=== PATIENT | male | born 1975 ===

== ENCOUNTER 2017-01-07 12:07 | Outpatient (CLI) | payer OTHER | END 2017-01-07 12:08 | disposition home or self-care (01) | DX: S46.112A Strain of muscle, fascia and tendon of long head of biceps, left arm, initial encounter (principal); M75.92 Shoulder lesion, unspecified, left shoulder ==

== ENCOUNTER 2017-02-04 13:23 | Outpatient (CLI) | payer OTHER ==
[2017-02-04] MEDS ORDERED: GADOPENTETATE DIMEGLUMINE 5 ML VIAL IVP ONE ×2 (14:22)
[2017-02-04] MEDS ORDERED: LIDOCAINE 1% 50 ML MDV SUBQ ONE ×2 (14:22)
[2017-02-04] MEDS ORDERED: BUFFERED LIDOCAINE 10 ML SYRINGE IU ONE (14:22)
[2017-02-04] MEDS ORDERED: IOTHALAMATE MEGLUMINE 50 ML VIAL IVP ONE ×2 (14:22)
== END 2017-02-04 13:24 | disposition home or self-care (01) ==
DX: S43.432A Superior glenoid labrum lesion of left shoulder, initial encounter (principal); M75.102 Unspecified rotator cuff tear or rupture of left shoulder, not specified as traumatic; M94.212 Chondromalacia, left shoulder
CPT/HCPCS: 23350; 73222; 77002; Q9961

== ENCOUNTER 2017-04-25 13:14 | Outpatient (CLI) | payer OTHER ==
[2017-04-25] MEDS ORDERED: BUFFERED LIDOCAINE 10 ML SYRINGE IU ONE ×2 (14:40)
[2017-04-25] MEDS ORDERED: IOTHALAMATE MEGLUMINE 50 ML VIAL IVP ONE ×2 (14:40)
[2017-04-25] MEDS ORDERED: GADOPENTETATE DIMEGLUMINE 5 ML VIAL IVP ONE ×2 (14:40)
--- NOTE | 2017-04-25 16:30 | XRAY Report ---
FLUOROSCOPICALLY GUIDED RIGHT SHOULDER INJECTION: 04/25/2017 CLINICAL INDICATION: Right shoulder pain, MR arthrogram. FINDINGS: Following obtaining informed consent, the patient's right shoulder was prepped and draped in the usual sterile fashion. The skin and soft tissues were anesthetized with lidocaine. A spinal ne edle was inserted into the right glenohumeral joint, and following confirmation of needle positioning , a combination of Iodinated contrast, dilute gadolinium, and lidocaine was injected intraarticularly . The patient tolerated the procedure well. No immediate complications. Spot image reveals no evidenc e of contrast extravasation. IMPRESSION: SUCCESSFUL RIGHT SHOULDER INJECTION FOR MR ARTHROGRAM. FLUOROSCOPY TIME: 36 SECONDS; 1 SPOT IMAGE OBTAINED. JOB #: [id number] EXT JOB #:[id number]
--- NOTE | 2017-04-25 18:11 | MRI Report ---
EXAM: RIGHT SHOULDER MRI ARTHROGRAM WITH CONTRAST EXAM DATE: 04/25/2017 03:00 PM. CLINICAL HISTORY: Pain in right shoulder. COMPARISON: None. TECHNIQUE: Multiplanar, multisequence T1-weighted and fluid-sensitive sequences of the shoulder after an arthrographic injection of dilute gadolinium, dictated under a separate exam. Other: None. FINDINGS: Acromioclavicular Region: The acromion is type II. The acromioclavicular joint is unremarkable. The c oracoacromial and coracoclavicular ligaments are intact. Trace amount of fluid in the bursa. No contr ast. Glenohumeral Region: No subluxation. No loose bodies. The articular cartilage is unremarkable. The gl enohumeral ligaments and joint capsule are unremarkable. Bone Marrow: No fracture, marrow edema or bone lesions. Labrum: Full-thickness tear superior labrum outline without contrast material. Please see series 601 image 10, series 501 image 17. Biceps Tendon: The long head of the biceps tendon and biceps josephine are intact. Musculature/Rotator Cuff: Some increased T2 signal without partial or full-thickness fluid-filled gap seen in the anterior distal supraspinatus fibers. Please see series 901 image 17, series 801 image 1 7. Subscapularis also shows mild thickening. Infraspinatus and teres minor are more normal. No proxim al muscular edema or fatty atrophy is seen. Other: The subcutaneous tissues are unremarkable. IMPRESSION: 1. Type II unipartite undersurface osseous acromion shape. AC joint is unremarkable. Trace amount of fluid in the bursa. No contrast. 2. Full-thickness labral tears appear labrum outline the contrast material. Type II SLAP lesion. 3. Tendinitis seen in the distal supraspinatus portion of the rotator cuff, infraspinatus and teres m inor have a normal appearance. Subscapularis shows mild tendinopathy as well. 4. No other worrisome imaging features. [facility] MUSCULOSKELET[facility] RADIOLOGY SECTION Referring Provider Line: [phone] SITE ID: [id number]
== END 2017-04-25 13:15 | disposition home or self-care (01) ==
LOC: DI 13:14
PROVIDERS: ATTEND General Practice
DX: S43.431A Superior glenoid labrum lesion of right shoulder, initial encounter (principal); M75.31 Calcific tendinitis of right shoulder
CPT/HCPCS: 23350; 73222; 77002; Q9961